=== PATIENT | male | born 1995 | race Caucasian/White ===

== ENCOUNTER 2019-07-24 06:13 | Emergency (ER) | payer BC ==
[~2019-07-24] VITALS: Ht 188 cm; Wt 85.7 kg
[2019-07-24 06:17] VITALS: BP 148/87
--- NOTE | 2019-07-24 06:23 | NUR ---
PT AMBULATED TO BED #8
--- NOTE | 2019-07-24 06:38 | NUR ---
23 Y/O MALE DIFFICULTY BREATHING [id number]. PER PT, "IT HURTS TO SWALLOW." PAIN DURING INSPIRATION AND EXPIRATION. PT SNORTED COCAINE AND DRANK 1 BEER AT APPROX. 0400. PATIENT IS A/O X3 TO PERSON, PLACE, AND TIME. LUNGS ARE CLEAR BILATERALLY; SKIN IS PINK AND MOIST. STITCHES NOTED IN THE BACK OF HEAD.HAND MANAGER ENT ARE STRONG. ER MD AWARE OF STATUS. SIDE RAILSX 1 AND PLACED ON MONITOR. PMH: DENIES RX:DENIES ALLERGIES:NKDA
[2019-07-24] MEDS ORDERED: KETOROLAC 60 MG/2 ML VIAL IM ONE (06:40)
--- NOTE | 2019-07-24 06:40 | NUR ---
AG DWYER AT BEDSIDE.
--- NOTE | 2019-07-24 06:42 | NUR ---
EMT AT BEDSIDE.
[2019-07-24 06:48] VITALS: BP 142/72
--- NOTE | 2019-07-24 06:49 | NUR ---
DR. CANO AT BEDSIDE.
--- NOTE | 2019-07-24 06:55 | NUR ---
PATIENT'S VSS. PER ER MD, PATIENT OKAY TO DISCHARGE.
--- NOTE | 2019-07-24 06:56 | NUR ---
Patient discharged with v/s stable. Written and verbal after care instructions given and explained. Patient alert, oriented and verbalized understanding of instructions. Ambulatory with steady gait. All questions addressed prior to discharge. ID band removed. Patient advised to follow up with PMD. Rx of MOTRIN 800 MG given. Patient educated on indication of medication including possible reaction and side effects. Opportunity to ask questions provided and answered.
== END 2019-07-24 06:56 | disposition home or self-care (01) ==
LOC: MED 06:13
DX: R07.89 Other chest pain (principal); R06.02 Shortness of breath; F14.10 Cocaine abuse, uncomplicated; F17.200 Nicotine dependence, unspecified, uncomplicated
CPT/HCPCS: 93005; 96372; 99283; J1885